=== PATIENT | male | born 1945 | race Hispanic/Latino ===

== ENCOUNTER 2016-10-16 04:09 | Emergency (ER) | payer MEDICARE ==
[2016-10-16] MEDS ORDERED: TDAP Vaccine 0.5 mL Syr IM ONE (04:39)
--- NOTE | 2016-10-16 04:44 | ED PDOC ---
HPI: Head Injury Time Seen by Provider: 10/16/16 04:30 Chief Complaint (Nursing): Trauma Chief Complaint (Provider): fall History Per: Patient, EMS, Family Injury Occurred (Timing): Just Before Arrival Onset/Duration Of Symptoms: Mins Patient States: Fell Striking Head Additional History Per: Patient, EMS, Family Additional Complaint(s): 70 y/o male history of dementia, CVA, hypertension, hyperlipidemia brought in by EMS for eval of fall, 30 mins prior to arrival. Patient son states patient left house while him and mother were sleeping, which he has done before, and must have fallen during that time. Patient states he was trying to step up on the curb from the street and his foot got stuck, causing him to fall forward. Patient denies LOC, headache, dizziness, extremity numbness/weakness, nausea/ vomiting, neck/back pain, bowel/bladder incontinence. Last Tetanus unknown. Past Medical History Reviewed: Historical Data, Nursing Documentation, Vital Signs Vital Signs: Last Vital Signs Temp 99 F 10/16/16 04:18 Pulse 89 10/16/16 04:18 Resp 18 10/16/16 04:18 BP 104/67 10/16/16 04:18 Pulse Ox 98 10/16/16 04:18 - Medical History PMH: CVA, Dementia, HTN, Hyperlipidemia - Surgical History Surgical History: Carotid Endarterectomy - Family History Family History: States: Unknown Family Hx - Living Arrangements Living Arrangements: With Family - Social History Current smoker - smoking cessation education provided: No - Home Medications Home Medications: Ambulatory Orders Medication Instructions Recorded Aspirin [Aspirin Chewable] 81 mg PO 10/16/16 Atorvastatin [Lipitor] 20 mg PO 10/16/16 Lisinopril [Zestril] 5 mg PO 10/16/16 [place]-3S/Dha/Epa/Fish Oil [Fish 1 cap PO 10/16/16 Oil [place]-3 Softgel] - Allergies Allergies/Adverse Reactions: Allergies Allergy/AdvReac Type Severity Reaction Status Date / Time No Known Allergies Allergy Verified 10/16/16 04:23 Review of Systems ROS Statement: Except As Marked, All Systems Reviewed And Found Negative Skin: Positive for: Other (forehead laceration) Physical Exam - Reviewed Nursing Documentation Reviewed: Yes Vital Signs Reviewed: Yes - Physical Exam Appears: Positive for: Well, Non-toxic, No Acute Distress Head Exam: Positive for: NORMAL INSPECTION. Negative for: ATRAUMATIC ( superficial laceration/skin tear noted left frontal scalp, superior to left eyebrow with mild surrounding edema/ecchymosis. No crepitus, stepoff deformity noted) Skin: Positive for: Normal Color Eye Exam: Positive for: Normal appearance, EOMI, PERRL ENT: Positive for: Normal ENT Inspection Cardiovascular/Chest: Positive for: Regular Rate, Rhythm Respiratory: Positive for: Normal Breath Sounds Gastrointestinal/Abdominal: Positive for: Normal Exam Back: Positive for: Normal Inspection Extremity: Positive for: Normal ROM Neurologic/Psych: Positive for: Alert, Oriented (x2). Negative for: Motor/ Sensory Deficits - ECG ECG: Positive for: Viewed By Me (reviewed by ED attending) ECG Rhythm: Positive for: Sinus Rhythm O2 Sat by Pulse Oximetry: 98 - Progress ED Course And Treament: accucheck, ekg, CT head/facial/cspine, boostrix IM Superficial lac/skin tear irrigated with 100mL NS, steristrips applied, pressure bandage applied Disposition - Clinical Impression Clinical Impression: Head injury, Dementia - Disposition Disposition: Transfer of Care Disposition Time: 05:55 Condition: STABLE Patient Signed Over To: Dereck Dawson Handoff Comments: pending CT's
[2016-10-16 05:11] VITALS: BP 104/67; PULSE 89; RESP 18; TEMP 99; O2SAT 98
--- NOTE | 2016-10-16 05:57 | ED PDOC ---
- ECG O2 Sat by Pulse Oximetry: 98 Medical Decision Making Medical Decision Making: Patient s/o from Rosa M Miranda PA-C at [address] 0611: CT head impression: 1. No intracranial hemorrhage. 2. Nonspecific white matter changes. 3. See facial bone CT report for additional details. CT maxillofacial impression: 1. No fracture. CT c-spine impression: 1. No fracture. 2. RUL nodule, indeterminate. Followup as clinically warranted. 0620: Patient stable for d/c. Dx: head injury Patient and son advised to f/u w/ PCP in 2-3 days Scribe Attestation: Documented by Italo Chacko acting as a scribe for Dereck Dwason MD. Provider Scribe Attestation: All medical record entries made by the Scribe were at my direction and personally dictated by me. I have reviewed the chart and agree that the record accurately reflects my personal performance of the history, physical exam, medical decision making, and the department course for this patient. I have also personally directed, reviewed, and agree with the discharge instructions and disposition. Disposition - Clinical Impression Clinical Impression: Head injury - POA Present On Arrival: None - Disposition Disposition: Routine/Home Disposition Time: 06:20 Condition: STABLE Instructions: Head Injury (ED)
--- NOTE | 2016-10-16 06:12 | CT ---
EXAM: CT Head Without Intravenous Contrast CLINICAL HISTORY: 70 years old, male; Injury or trauma; Fall; Initial encounter; Blunt trauma (contusions or hematomas) TECHNIQUE: Axial computed tomography images of the head/brain without intravenous contrast. This CT exam was performed using one or more of the following dose reduction techniques: automated exposure control, adjustment of the mA and/or kV according to patient size, and/or use of iterative reconstruction technique. Coronal and sagittal reformatted images were created and reviewed. COMPARISON: No relevant prior studies available. FINDINGS: Brain: Moderate atrophy. No intracranial hemorrhage. No mass. Multiple scattered foci of decreased attenuation within periventricular/subcortical white matter. Chronic lacunar infarcts within periventricular white matter, basal ganglia, brainstem. No edema. Ventricles: No hydrocephalus. Bones/joints: No calvarial fracture. Vasculature: Minimal atherosclerotic disease of intracranial arteries. Mastoid air cells: No mastoid effusion. IMPRESSION: 1. No intracranial hemorrhage. 2. Nonspecific white matter changes. 3. See facial bone CT report for additional details. 4. Incidental/non-acute findings are described above.
--- NOTE | 2016-10-16 06:14 | CT ---
EXAM: CT Maxillofacial Without Intravenous Contrast CLINICAL HISTORY: 70 years old, male; Injury or trauma; Fall; Initial encounter; Blunt trauma (contusions or hematomas); Forehead TECHNIQUE: Axial computed tomography images of the face without intravenous contrast. This CT exam was performed using one or more of the following dose reduction techniques: automated exposure control, adjustment of the mA and/or kV according to patient size, and/or use of iterative reconstruction technique. Coronal and sagittal reformatted images were created and reviewed. COMPARISON: No relevant prior studies available. FINDINGS: Bones/joints: No acute fracture. Soft tissues: Mild frontal/periorbital soft tissue swelling. Orbits: Unremarkable as visualized. Sinuses: Scattered minimal mucosal thickening. No air-fluid levels. IMPRESSION: 1. No fracture. 2. Incidental/non-acute findings are described above.
--- NOTE | 2016-10-16 06:19 | CT ---
EXAM: CT Cervical Spine Without Intravenous Contrast CLINICAL HISTORY: 70 years old, male; Injury or trauma; Fall; Initial encounter; Blunt trauma TECHNIQUE: Axial computed tomography images of the cervical spine without intravenous contrast. This CT exam was performed using one or more of the following dose reduction techniques: automated exposure control, adjustment of the mA and/or kV according to patient size, and/or use of iterative reconstruction technique. Coronal and sagittal reformatted images were created and reviewed. COMPARISON: No relevant prior studies available. FINDINGS: Vertebrae: No acute fracture. Facet osteoarthrosis with partial fusion. Discs/spinal canal/neural foramina: Partial fusion across C4-C5, C5-C6 levels. No significant central canal stenosis. Soft tissues: Unremarkable. Vasculature: Mild atherosclerotic disease. Lung apices: 1.5 x 0.5 x 0.5 cm spiculated nodular opacity RIGHT lung apex. Other findings: Surgical clips within LEFT neck. IMPRESSION: 1. No fracture. 2. RUL nodule, indeterminate. Followup as clinically warranted. 3. Incidental/non-acute findings are described above.
--- NOTE | 2016-10-18 19:03 | CARD ---
APPROVED REPORT EKG Measurement Heart [id number] <Conclusion> Sinus rhythm with premature atrial complexes Otherwise normal ECG
== END 2016-10-16 06:22 | disposition home or self-care (01) ==
LOC: EDBD 04:09 → H.ER 04:09
DX: S09.90XA Unspecified injury of head, initial encounter (principal); W19.XXXA Unspecified fall, initial encounter; Y92.89 Other specified places as the place of occurrence of the external cause; E78.5 Hyperlipidemia, unspecified; F03.90 Unspecified dementia, unspecified severity, without behavioral disturbance, psychotic disturbance, mood disturbance, and anxiety; I10 Essential (primary) hypertension; I49.1 Atrial premature depolarization; Z79.82 Long term (current) use of aspirin; Z86.73 Personal history of transient ischemic attack (TIA), and cerebral infarction without residual deficits